=== PATIENT | male | born 1955 | race Caucasian/White ===

== ENCOUNTER 2021-03-01 12:18 | Emergency (ER) | payer OTHER ==
[2021-03-01 12:29] VITALS: BP 98/67; PULSE 60; TEMP 97.9; BMI 27.9
== END 2021-03-01 14:42 | disposition home or self-care (01) ==
LOC: JERFT 12:18
PROC: 2W3QX1Z Immobilization of Right Lower Leg using Splint (ICD-10-PCS; principal; 2021-03-01)
DX: S82.891A Other fracture of right lower leg, initial encounter for closed fracture (principal)
CPT/HCPCS: 73560-TC-RT-FY; 73610-TC-RT-FY; 73630-TC-LT; 73630-TC-RT-FY; 99284-25

== ENCOUNTER 2023-08-22 08:09 | Inpatient (IN) | payer OTHER ==
[2023-08-22] MEDS ORDERED: SODIUM CHLORIDE 0.9% 1000 ML INFUS.BAG IV ONE (08:20)
[2023-08-22] MEDS ORDERED: ETOMIDATE 20 MG/10 ML VIAL IVPUSH ONE (08:20)
[2023-08-22] MEDS ORDERED: ROCURONIUM BROMIDE 50 MG/5 ML VIAL IV ONE (08:20)
[2023-08-22] MEDS ORDERED: AMIODARONE HCL INJECTION 150 MG in DEXTROSE 5%-WATER - 100 ML IVPB ONE (08:28)
[2023-08-22] MEDS ORDERED: AMIODARONE HCL 150 MG/3 ML VIAL IVPUSH ONE (08:29)
[2023-08-22] MEDS ORDERED: AZITHROMYCIN IVPB 500 MG in DEXTROSE 5%-WATER - 250 ML IVPB ONE (08:37)
[2023-08-22] MEDS ORDERED: CEFTRIAXONE 1 GM in DEXTROSE 5%-WATER - 100 ML IVPB ONE (08:37)
[2023-08-22 08:39] LABS: INR 1.39 (0.83-1.09); PROTHROMBIN TIME (PATIENT) 16.1 SEC (9.7-13.0)
[2023-08-22] MEDS ORDERED: AMIODARONE IN DEXTROSE,ISO-OSM 360 MG/200 ML BAG ONE ×2 (08:57→13:34)
[2023-08-22 09:02] LABS: HEMATOCRIT 45.1 % (35.4-49); HEMOGLOBIN 15.2 G/dL (11.7-16.9); MCH 31.7 pg (25.7-33.7); MCHC 33.8 g/dl (32.0-35.9); MEAN CELL VOLUME 93.8 fl (80-96); MEAN PLT VOLUME 10.4 fl (7.5-11.1); PLATELET COUNT 140.2 10^3/uL (134-434); RBC 4.81 10^6/uL (4.00-5.60); RDW 14.5 % (11.9-15.9); WHITE BLOOD COUNT 9.2 10^3/uL (4.0-10.8)
[2023-08-22 09:04] LABS: ALBUMIN 4.2 g/dl (3.4-5.0); BILIRUBIN,TOTAL 0.9 mg/dl (0.2-1); CALCIUM 9.2 mg/dl (8.5-10.1); CREATININE 1.1 mg/dl (0.6-1.3); MAGNESIUM 1.9 mg/dL (1.8-2.4); POTASSIUM 4.4 mmol/L (3.5-5.1); TOT PROT 6.8 g/dl (6.4-8.2)
[2023-08-22] MEDS ORDERED: MIDAZOLAM HCL 2 MG/2 ML SINGLE DOSE VIAL IVPUSH ONE ×2 (09:15→10:10)
[2023-08-22] MEDS ORDERED: MIDAZOLAM HCL 2 MG/2 ML SINGLE DOSE VIAL ONE ×2 (09:16→10:06)
[2023-08-22] MEDS ORDERED: PROPOFOL 200 MG/20 ML VIAL IVPUSH ONE (09:21)
[2023-08-22] MEDS ORDERED: cefTRIAXone SODIUM 1 GM VIAL ONE (09:44)
[2023-08-22 09:50] LABS: ARTERIAL BLD GAS O2 SATURATION 88.1 % (95-98); ARTERIAL BLOOD GAS BASE EXCESS -3.8 mmol/L (-2-2); ARTERIAL BLOOD GAS PO2 58.7 mmHg (80-100); ARTERIAL BLOOD GAS pH 7.313 (7.350-7.450)
[2023-08-22 09:54] LABS: VENOUS BASE EXCESS -4.5 mmol/L (-2-2); VENOUS O2 SATURATION 54.2 % (70-80); VENOUS PCO2 51.9 mmHg (38-52); VENOUS PH 7.266 (7.310-7.410)
[2023-08-22 10:15] LABS: URINE SPERM PRESENT
[2023-08-22 10:18] LABS: LACTIC ACID 5.8 mmol/L (0.4-2.0)
[2023-08-22] MEDS ORDERED: FENTANYL NS IVPB 500 MCG/100 ML BAG IVPB ONE (11:27)
[2023-08-22] MEDS ORDERED: HEPARIN NA (PORCINE) 5,000 UNITS/ML 1ML VIAL IVPUSH PRN ×2 (12:16)
[2023-08-22] MEDS ORDERED: HEPARIN NA (PORCINE) 5,000 UNITS/ML 1ML VIAL IVPUSH ONE (12:16)
[2023-08-22] MEDS ORDERED: LACTATED RINGERS SOLUTION 1000 ML INFUS.BAG IV ONE ×3 (12:25→20:23)
[2023-08-22] MEDS ORDERED: NOREPINEPHRINE BITARTRATE 4 MG/4 ML ML IV ONE ×2 (12:53→13:23)
[2023-08-22] MEDS: FENTANYL NS IVPB 500 MCG/100 ML BAG IVPB SCH (13:00)
[2023-08-22] MEDS: PROPOFOL 1,000,000 MCG/100 ML VIAL IVPB SCH (17:00)
[2023-08-22 17:56] LABS: ARTERIAL BLD GAS O2 SATURATION 85.2 % (95-98); ARTERIAL BLOOD GAS BASE EXCESS -6.5 mmol/L (-2-2); ARTERIAL BLOOD GAS PO2 56.1 mmHg (80-100); ARTERIAL BLOOD GAS pH 7.273 (7.350-7.450)
[2023-08-22 17:58] LABS: ALLENS TEST POSITIVE
[2023-08-22 18:00] LABS: VENT MODE AC; VENT RATE 14
[2023-08-22] MEDS: HEPARIN INFUSION - 25,000 UNITS/500 ML INFUS.BAG IVPB SCH (19:00)
[2023-08-22] MEDS: MUPIROCIN 2% TOPICAL OINTMENT FOR DECOLONIZATION NS SCH ×2 (19:01→21:30)
[2023-08-22 19:08] LABS: LACTIC ACID 4.3 mmol/L (0.4-2.0)
[2023-08-22] MEDS: ACETAMINOPHEN 1000 MG/100 ML BAG IVPB PRN (19:23)
[2023-08-22] MEDS ORDERED: NOREPINEPHRINE 0.9 % NACL 8 MG/250 ML BAG IVPB SCH (19:30)
[2023-08-22] MEDS ORDERED: AZITHROMYCIN IVPB 500 MG/250 ML BAG IVPB ONE (19:30)
[2023-08-22] MEDS ORDERED: MIDAZOLAM HCL 5 MG/1 ML Single Dose Vial ONE (19:41)
[2023-08-22] MEDS ORDERED: AMIODARONE IN DEXTROSE,ISO-OSM 360 MG/200 ML BAG IV SCH (19:45)
[2023-08-22] MEDS: INSULIN SLIDING SCALE (NOVOLOG) 1 VIAL SQ SCH (19:52)
[2023-08-22] MEDS: PIPERACILLIN/TAZOB 3.375 GM 3.375 GM in DEXTROSE 5%-WATER - 50 ML IVPB SCH (19:57)
[2023-08-22] MEDS ORDERED: MIDAZOLAM HCL 5 MG/1 ML Single Dose Vial IVPUSH ONE (20:28)
[2023-08-22] MEDS ORDERED: VANCOMYCIN/WATER FOR INJ (PEG) 1,000 MG/200 ML BAG IVPB ONE (20:30)
[2023-08-22] MEDS: PANTOPRAZOLE SODIUM 40 MG VIAL IVPUSH SCH (21:27)
[2023-08-22] MEDS: CHLORHEXIDINE GLUCONATE 4% CLEANSER FOR DECOLONIZATION TP SCH (21:27)
[2023-08-22] MEDS ORDERED: VASOPRESSIN 20 UNITS/ML VIAL IV ONE (21:53)
[2023-08-22] MEDS: VASOPRESSIN 40 UNITS/100 ML BAG IV SCH (21:59)
[2023-08-22] MEDS: HYDROCORTISONE SOD SUCCINATE 100 MG/2 ML VIAL IVPUSH SCH (23:30)
[2023-08-22 23:52] LABS: ALBUMIN 2.6 g/dl (3.4-5.0); BILIRUBIN,TOTAL 0.7 mg/dL (0.2-1); BLOOD UREA NITROGEN 16.6 mg/dL (7-18); CALCIUM 7.7 mg/dL (8.5-10.1); CREATININE 1.4 mg/dL (0.55-1.3); MAGNESIUM 1.4 mg/dL (1.8-2.4); POTASSIUM 5.1 mmol/L (3.5-5.1)
[2023-08-23] MEDS ORDERED: MAGNESIUM SULFATE IN WATER 2 GM/50 ML IVPB IVPB ONE (00:11)
[2023-08-23] MEDS ORDERED: INSULIN (NOVOLOG) ASPART 100 UNITS/ML 10ML VIAL ONE (00:28)
[2023-08-23] MEDS: INSULIN SLIDING SCALE (NOVOLOG) 1 VIAL SQ SCH ×4 (00:30→19:29)
[2023-08-23] MEDS: PIPERACILLIN/TAZOB 3.375 GM 3.375 GM in DEXTROSE 5%-WATER - 50 ML IVPB SCH ×3 (02:01→18:46)
[2023-08-23] MEDS: HYDROCORTISONE SOD SUCCINATE 100 MG/2 ML VIAL IVPUSH SCH ×3 (05:09→21:13)
[2023-08-23 07:07] LABS: ARTERIAL BLD GAS O2 SATURATION 91.7 % (95-98); ARTERIAL BLOOD GAS BASE EXCESS -7.1 mmol/L (-2-2); ARTERIAL BLOOD GAS PO2 70.3 mmHg (80-100); ARTERIAL BLOOD GAS pH 7.261 (7.350-7.450)
[2023-08-23 07:09] LABS: VENT MODE V-AC; VENT RATE 14
[2023-08-23 08:05] LABS: INR 1.67 (0.83-1.09); PROTHROMBIN TIME (PATIENT) 19.3 SEC (9.7-13.0)
[2023-08-23 08:22] LABS: HEMATOCRIT 44.9 % (35.4-49); HEMOGLOBIN 14.8 GM/dL (11.7-16.9); MCH 31.2 pg (25.7-33.7); MCHC 32.9 g/dl (32.0-35.9); MEAN CELL VOLUME 94.7 fl (80-96); MEAN PLT VOLUME 10.3 fl (7.5-11.1); PLATELET COUNT 125 10^3/uL (134-434); RBC 4.74 M/mm3 (4.00-5.60); RDW 13.7 % (11.9-15.9); WHITE BLOOD COUNT 15.1 K/mm3 (4.0-10.0)
[2023-08-23 08:25] LABS: ACTIVATED PTT 236.1 SECONDS (25.2-36.5)
[2023-08-23] MEDS ORDERED: LACTATED RINGERS SOLUTION 1,000 ML/1,000 ML INFUS.BAG IV STA ×2 (08:38)
[2023-08-23 08:39] LABS: ALBUMIN 2.8 g/dl (3.4-5.0); BILIRUBIN,TOTAL 0.9 mg/dL (0.2-1); BLOOD UREA NITROGEN 17.3 mg/dL (7-18); CALCIUM 7.8 mg/dL (8.5-10.1); CREATININE 1.2 mg/dL (0.55-1.3); PHOSPHOROUS 3.6 mg/dL (2.5-4.9); POTASSIUM 5.6 mmol/L (3.5-5.1); TOT PROT 5.5 g/dl (6.4-8.2)
[2023-08-23] MEDS ORDERED: DOCUSATE NA 100 MG/10 ML UNIT-DOSE CUPS GT PRN (08:48)
[2023-08-23] MEDS: PANTOPRAZOLE SODIUM 40 MG VIAL IVPUSH SCH (09:06)
[2023-08-23] MEDS: MUPIROCIN 2% TOPICAL OINTMENT FOR DECOLONIZATION NS SCH ×2 (09:07→21:12)
[2023-08-23 09:29] LABS: ANISOCYTOSIS 1+; MACROCYTOSIS 0; OVALOCYTE 1+
[2023-08-23] MEDS: ACETAMINOPHEN 1000 MG/100 ML BAG IVPB PRN (09:41)
[2023-08-23] MEDS: HEPARIN INFUSION - 25,000 UNITS/500 ML INFUS.BAG IVPB SCH (13:19)
[2023-08-23] MEDS: NOREPINEPHRINE 0.9 % NACL 8 MG/250 ML BAG IVPB SCH (13:22)
[2023-08-23] MEDS: PROPOFOL 1,000,000 MCG/100 ML VIAL IVPB SCH (13:54)
[2023-08-23] MEDS: FENTANYL NS IVPB 500 MCG/100 ML BAG IVPB SCH ×2 (15:22→21:12)
[2023-08-23] MEDS: VANCOMYCIN/WATER 1250 MG 1,250 MG/250 ML BAG IVPB SCH (15:54)
[2023-08-23 19:00] LABS: INR 2.32 (0.83-1.09); PROTHROMBIN TIME (PATIENT) 26.7 SEC (9.7-13.0)
[2023-08-23 19:03] LABS: ACTIVATED PTT 107.7 SECONDS (25.2-36.5)
[2023-08-23] MEDS: SENNOSIDES 8.8 MG/5 ML SYRUP NGT SCH (21:13)
[2023-08-23] MEDS: CHLORHEXIDINE GLUCONATE 4% CLEANSER FOR DECOLONIZATION TP SCH (21:13)
[2023-08-23 22:51] LABS: ARTERIAL BLD GAS O2 SATURATION 59.1 % (95-98); ARTERIAL BLOOD GAS BASE EXCESS -4.2 mmol/L (-2-2)
[2023-08-23 23:03] LABS: ARTERIAL BLOOD GAS PO2 33.7 mmHg (80-100)
[2023-08-23 23:56] LABS: LACTIC ACID 2.7 mmol/L (0.4-2.0)
[2023-08-24] MEDS: INSULIN SLIDING SCALE (NOVOLOG) 1 VIAL SQ SCH ×4 (00:44→18:46)
[2023-08-24] MEDS: PIPERACILLIN/TAZOB 3.375 GM 3.375 GM in DEXTROSE 5%-WATER - 50 ML IVPB SCH ×3 (01:06→17:23)
[2023-08-24] MEDS: VANCOMYCIN/WATER 1250 MG 1,250 MG/250 ML BAG IVPB SCH ×2 (03:08→14:39)
[2023-08-24] MEDS: HYDROCORTISONE SOD SUCCINATE 100 MG/2 ML VIAL IVPUSH SCH ×3 (05:46→21:41)
[2023-08-24 08:05] LABS: ARTERIAL BLD GAS O2 SATURATION 98.3 % (95-98); ARTERIAL BLOOD GAS BASE EXCESS -1.5 mmol/L (-2-2); ARTERIAL BLOOD GAS PO2 128.4 mmHg (80-100); ARTERIAL BLOOD GAS pH 7.331 (7.350-7.450)
[2023-08-24 08:15] LABS: HEMATOCRIT 33.5 % (35.4-49); HEMOGLOBIN 11.3 GM/dL (11.7-16.9); MCH 31.5 pg (25.7-33.7); MCHC 33.6 g/dl (32.0-35.9); MEAN CELL VOLUME 93.6 fl (80-96); MEAN PLT VOLUME 10.5 fl (7.5-11.1); PLATELET COUNT 75 10^3/uL (134-434); RBC 3.58 M/mm3 (4.00-5.60); RDW 13.6 % (11.9-15.9); WHITE BLOOD COUNT 9.6 K/mm3 (4.0-10.0)
[2023-08-24 08:18] LABS: LACTIC ACID 2.4 mmol/L (0.4-2.0)
[2023-08-24] MEDS: FENTANYL NS IVPB 500 MCG/100 ML BAG IVPB SCH ×2 (08:30→15:56)
[2023-08-24 08:35] LABS: POTASSIUM 3.9 mmol/L (3.5-5.1)
[2023-08-24 08:37] LABS: CALCIUM 7.6 mg/dL (8.5-10.1)
[2023-08-24 08:38] LABS: ALBUMIN 2.3 g/dl (3.4-5.0); BLOOD UREA NITROGEN 17.8 mg/dL (7-18); MAGNESIUM 1.8 mg/dL (1.8-2.4)
[2023-08-24 08:40] LABS: BILIRUBIN,DIRECT 0.3 mg/dL (0.0-0.2)
[2023-08-24 08:41] LABS: PHOSPHOROUS 2.6 mg/dL (2.5-4.9)
[2023-08-24 08:42] LABS: BILIRUBIN,TOTAL 0.7 mg/dL (0.2-1)
[2023-08-24 08:43] LABS: TOT PROT 4.6 g/dl (6.4-8.2)
[2023-08-24] MEDS: PROPOFOL 1,000,000 MCG/100 ML VIAL IVPB SCH ×2 (09:04→15:01)
[2023-08-24] MEDS: PANTOPRAZOLE SODIUM 40 MG VIAL IVPUSH SCH (09:06)
[2023-08-24] MEDS: NOREPINEPHRINE 0.9 % NACL 8 MG/250 ML BAG IVPB SCH ×2 (09:15→16:26)
[2023-08-24] MEDS: MUPIROCIN 2% TOPICAL OINTMENT FOR DECOLONIZATION NS SCH ×2 (09:15→21:37)
[2023-08-24] MEDS ORDERED: INSULIN (NOVOLOG) ASPART 100 UNITS/ML 10ML VIAL ONE ×3 (11:56→18:29)
[2023-08-24] MEDS: VASOPRESSIN 40 UNITS/100 ML BAG IV SCH ×2 (15:00→15:53)
[2023-08-24] MEDS ORDERED: VASOPRESSIN 20 UNITS/ML VIAL IV ONE (15:12)
[2023-08-24] MEDS: HEPARIN INFUSION - 25,000 UNITS/500 ML INFUS.BAG IVPB SCH (18:43)
[2023-08-24] MEDS: CHLORHEXIDINE GLUCONATE 4% CLEANSER FOR DECOLONIZATION TP SCH (21:37)
[2023-08-24] MEDS: SENNOSIDES 8.8 MG/5 ML SYRUP NGT SCH (21:41)
[2023-08-25] MEDS: FENTANYL NS IVPB 500 MCG/100 ML BAG IVPB SCH (00:58)
[2023-08-25] MEDS: INSULIN SLIDING SCALE (NOVOLOG) 1 VIAL SQ SCH ×4 (00:59→18:30)
[2023-08-25] MEDS: PIPERACILLIN/TAZOB 3.375 GM 3.375 GM in DEXTROSE 5%-WATER - 50 ML IVPB SCH ×3 (01:01→18:30)
[2023-08-25] MEDS: VANCOMYCIN/WATER 1250 MG 1,250 MG/250 ML BAG IVPB SCH ×2 (02:02→14:17)
[2023-08-25] MEDS: HYDROCORTISONE SOD SUCCINATE 100 MG/2 ML VIAL IVPUSH SCH ×3 (05:20→21:41)
[2023-08-25 07:17] LABS: HEMATOCRIT 29.9 % (35.4-49); HEMOGLOBIN 10.2 GM/dL (11.7-16.9); MCH 32.1 pg (25.7-33.7); MCHC 34.1 g/dl (32.0-35.9); MEAN CELL VOLUME 94.1 fl (80-96); MEAN PLT VOLUME 9.5 fl (7.5-11.1); PLATELET COUNT 68 10^3/uL (134-434); RBC 3.17 M/mm3 (4.00-5.60); RDW 13.8 % (11.9-15.9); WHITE BLOOD COUNT 7.2 K/mm3 (4.0-10.0)
[2023-08-25 07:41] LABS: BLOOD UREA NITROGEN 21.2 mg/dL (7-18); CALCIUM 7.7 mg/dL (8.5-10.1)
[2023-08-25 07:42] LABS: ALBUMIN 2.3 g/dl (3.4-5.0); MAGNESIUM 2.2 mg/dL (1.8-2.4)
[2023-08-25 07:45] LABS: CREATININE 0.9 mg/dL (0.55-1.3)
[2023-08-25 07:46] LABS: TOT PROT 4.8 g/dl (6.4-8.2)
[2023-08-25 07:50] LABS: BILIRUBIN,TOTAL 0.7 mg/dL (0.2-1)
[2023-08-25] MEDS: PANTOPRAZOLE SODIUM 40 MG VIAL IVPUSH SCH (09:07)
[2023-08-25] MEDS: MUPIROCIN 2% TOPICAL OINTMENT FOR DECOLONIZATION NS SCH ×2 (09:08→21:42)
[2023-08-25] MEDS: PROPOFOL 1,000,000 MCG/100 ML VIAL IVPB SCH ×2 (09:08)
[2023-08-25] MEDS: ENOXAPARIN NA (PORCINE) 100 MG/1 ML DISP.SYRIN SQ SCH ×2 (12:04→21:41)
[2023-08-25] MEDS: DEXTROSE 5%-0.45% SALINE 1,000 ML IV SCH (12:05)
[2023-08-25] MEDS: NOREPINEPHRINE 0.9 % NACL 8 MG/250 ML BAG IVPB SCH (13:12)
[2023-08-25] MEDS ORDERED: INSULIN (NOVOLOG) ASPART 100 UNITS/ML 10ML VIAL ONE (14:14)
[2023-08-25] MEDS: SENNOSIDES 8.8 MG/5 ML SYRUP NGT SCH (21:41)
[2023-08-25] MEDS: CHLORHEXIDINE GLUCONATE 4% CLEANSER FOR DECOLONIZATION TP SCH (21:41)
[2023-08-26] MEDS: PIPERACILLIN/TAZOB 3.375 GM 3.375 GM in DEXTROSE 5%-WATER - 50 ML IVPB SCH ×2 (01:39→09:26)
[2023-08-26] MEDS: INSULIN SLIDING SCALE (NOVOLOG) 1 VIAL SQ SCH ×4 (01:44→21:17)
[2023-08-26] MEDS: DEXTROSE 5%-0.45% SALINE 1,000 ML IV SCH ×2 (04:30→17:36)
[2023-08-26] MEDS: HYDROCORTISONE SOD SUCCINATE 100 MG/2 ML VIAL IVPUSH SCH ×2 (05:23→17:37)
[2023-08-26 07:04] LABS: HEMATOCRIT 33.7 % (35.4-49); HEMOGLOBIN 11.2 GM/dL (11.7-16.9); MCH 31.1 pg (25.7-33.7); MCHC 33.3 g/dl (32.0-35.9); MEAN CELL VOLUME 93.6 fl (80-96); MEAN PLT VOLUME 8.9 fl (7.5-11.1); PLATELET COUNT 78 10^3/uL (134-434); RDW 13.6 % (11.9-15.9); WHITE BLOOD COUNT 11.1 K/mm3 (4.0-10.0)
[2023-08-26 07:24] LABS: POTASSIUM 3.3 mmol/L (3.5-5.1)
[2023-08-26 07:28] LABS: CALCIUM 7.8 mg/dL (8.5-10.1)
[2023-08-26 07:29] LABS: ALBUMIN 2.4 g/dl (3.4-5.0); BLOOD UREA NITROGEN 19.2 mg/dL (7-18); MAGNESIUM 2.1 mg/dL (1.8-2.4)
[2023-08-26 07:32] LABS: CREATININE 0.8 mg/dL (0.55-1.3); PHOSPHOROUS 1.3 mg/dL (2.5-4.9)
[2023-08-26 07:33] LABS: BILIRUBIN,TOTAL 1.2 mg/dL (0.2-1); TOT PROT 5.4 g/dl (6.4-8.2)
[2023-08-26] MEDS ORDERED: NAPH,MB-DB/K PH,MBDB POWDER PACKET PO ONE (07:45)
[2023-08-26] MEDS: ENOXAPARIN NA (PORCINE) 100 MG/1 ML DISP.SYRIN SQ SCH ×2 (09:25→21:18)
[2023-08-26] MEDS: PANTOPRAZOLE SODIUM 40 MG VIAL IVPUSH SCH (09:26)
[2023-08-26] MEDS: MUPIROCIN 2% TOPICAL OINTMENT FOR DECOLONIZATION NS SCH ×2 (09:26→21:18)
[2023-08-26 15:02] VITALS: BMI 29.7
[2023-08-26] MEDS ORDERED: LABETALOL HCL 20 MG/4 ML VIAL ONE ×2 (17:33→22:30)
[2023-08-26] MEDS: CEFAZOLIN 1 GM in DEXTROSE 5%-WATER - 50 ML IVPB SCH (17:36)
[2023-08-26] MEDS: LABETALOL HCL 5 MG/1 ML (100MG/20 ML VIAL) IVPUSH PRN ×2 (18:22→22:31)
[2023-08-26] MEDS ORDERED: INSULIN (NOVOLOG) ASPART 100 UNITS/ML 10ML VIAL ONE (21:17)
[2023-08-26] MEDS: SENNOSIDES 8.8 MG/5 ML SYRUP NGT SCH (21:18)
[2023-08-26] MEDS: CHLORHEXIDINE GLUCONATE 4% CLEANSER FOR DECOLONIZATION TP SCH (21:18)
[2023-08-26] MEDS ORDERED: NOREPINEPHRINE BITARTRATE 4 MG/4 ML ML IV ONE (21:58)
[2023-08-26] MEDS ORDERED: VASOPRESSIN 20 UNITS/ML VIAL IV ONE (21:59)
[2023-08-27] MEDS: HYDROCORTISONE SOD SUCCINATE 100 MG/2 ML VIAL IVPUSH SCH ×2 (01:18→09:30)
[2023-08-27] MEDS: CEFAZOLIN 1 GM in DEXTROSE 5%-WATER - 50 ML IVPB SCH ×3 (01:18→18:03)
[2023-08-27] MEDS: INSULIN SLIDING SCALE (NOVOLOG) 1 VIAL SQ SCH ×4 (01:23→19:07)
[2023-08-27] MEDS: LABETALOL HCL 5 MG/1 ML (100MG/20 ML VIAL) IVPUSH PRN ×2 (06:11→16:23)
[2023-08-27] MEDS ORDERED: INSULIN (NOVOLOG) ASPART 100 UNITS/ML 10ML VIAL ONE ×2 (06:22→13:33)
[2023-08-27 07:36] LABS: HEMATOCRIT 34.3 % (35.4-49); HEMOGLOBIN 11.7 GM/dL (11.7-16.9); MCH 31.5 pg (25.7-33.7); MEAN CELL VOLUME 92.7 fl (80-96); MEAN PLT VOLUME 9.9 fl (7.5-11.1); PLATELET COUNT 91 10^3/uL (134-434); RDW 13.3 % (11.9-15.9); WHITE BLOOD COUNT 8.6 K/mm3 (4.0-10.0)
[2023-08-27 08:02] LABS: CHLORIDE 104 mmol/L (98-107); SODIUM 143 mmol/L (136-145)
[2023-08-27 08:04] LABS: ALBUMIN 2.4 g/dl (3.4-5.0); CALCIUM 7.6 mg/dL (8.5-10.1); CO2 30 mmol/L (21-32); GLUCOSE,RANDOM 197 mg/dL (74-106); MAGNESIUM 1.8 mg/dL (1.8-2.4)
[2023-08-27 08:05] LABS: BLOOD UREA NITROGEN 13.9 mg/dL (7-18)
[2023-08-27 08:07] LABS: CREATININE 0.6 mg/dL (0.55-1.3); PHOSPHOROUS 1.5 mg/dL (2.5-4.9)
[2023-08-27 08:08] LABS: SGOT/AST 23 U/L (15-37); SGPT/ALT 44 U/L (13-61)
[2023-08-27 08:09] LABS: BILIRUBIN,TOTAL 0.9 mg/dL (0.2-1); TOT PROT 5.3 g/dl (6.4-8.2)
[2023-08-27 08:10] LABS: ALK PHOS 72 U/L (45-117)
[2023-08-27 08:22] LABS: ANION GAP 9 mmol/L (4-13); POTASSIUM 2.7 mmol/L (3.5-5.1)
[2023-08-27] MEDS ORDERED: NAPH,MB-DB/K PH,MBDB POWDER PACKET PO ONE (08:45)
[2023-08-27] MEDS ORDERED: KCL 20 MEQ PREMIX BAG 100 ML IVPB ONE ×2 (09:00→10:00)
[2023-08-27] MEDS: ENOXAPARIN NA (PORCINE) 100 MG/1 ML DISP.SYRIN SQ SCH ×2 (09:30→22:26)
[2023-08-27] MEDS: PANTOPRAZOLE SODIUM 40 MG VIAL IVPUSH SCH (09:30)
[2023-08-27] MEDS: MUPIROCIN 2% TOPICAL OINTMENT FOR DECOLONIZATION NS SCH (09:31)
[2023-08-27] MEDS: DEXTROSE 5%-0.45% SALINE 1,000 ML IV SCH (09:32)
[2023-08-27] MEDS ORDERED: LABETALOL HCL 20 MG/4 ML VIAL ONE (16:14)
[2023-08-27 20:16] LABS: CHLORIDE 105 mmol/L (98-107); SODIUM 143 mmol/L (136-145)
[2023-08-27 20:19] LABS: CALCIUM 8.3 mg/dL (8.5-10.1)
[2023-08-27 20:20] LABS: CO2 30 mmol/L (21-32); GLUCOSE,RANDOM 155 mg/dL (74-106)
[2023-08-27 20:22] LABS: BLOOD UREA NITROGEN 12.4 mg/dL (7-18)
[2023-08-27 20:23] LABS: ANION GAP 8 mmol/L (4-13); CREATININE 0.7 mg/dL (0.55-1.3); POTASSIUM 2.7 mmol/L (3.5-5.1)
[2023-08-27] MEDS ORDERED: KCL 10 MEQ IVPB 10 MEQ/100 ML INFUS.BAG IVPB SCH (20:30)
[2023-08-27] MEDS: KCL 10 MEQ IVPB 10 MEQ/100 ML INFUS.BAG IVPB SCH ×3 (20:59→23:49)
[2023-08-27] MEDS: SENNOSIDES 8.8 MG/5 ML SYRUP NGT SCH (22:26)
[2023-08-27] MEDS: CHLORHEXIDINE GLUCONATE 4% CLEANSER FOR DECOLONIZATION TP SCH (22:26)
[2023-08-28] MEDS: INSULIN SLIDING SCALE (NOVOLOG) 1 VIAL SQ SCH ×4 (01:00→18:27)
[2023-08-28] MEDS: KCL 10 MEQ IVPB 10 MEQ/100 ML INFUS.BAG IVPB SCH ×3 (01:30→04:14)
[2023-08-28] MEDS: CEFAZOLIN 1 GM in DEXTROSE 5%-WATER - 50 ML IVPB SCH ×3 (02:30→17:09)
[2023-08-28 08:25] LABS: HEMATOCRIT 38.4 % (35.4-49); HEMOGLOBIN 12.9 GM/dL (11.7-16.9); MCH 31.2 pg (25.7-33.7); MCHC 33.5 g/dl (32.0-35.9); MEAN CELL VOLUME 93.2 fl (80-96); PLATELET COUNT 97 10^3/uL (134-434); RBC 4.12 M/mm3 (4.00-5.60); RDW 13.4 % (11.9-15.9); WHITE BLOOD COUNT 6.3 K/mm3 (4.0-10.0)
[2023-08-28 08:38] LABS: POTASSIUM 3.1 mmol/L (3.5-5.1)
[2023-08-28 08:43] LABS: ALBUMIN 2.5 g/dl (3.4-5.0)
[2023-08-28 08:44] LABS: BLOOD UREA NITROGEN 12.4 mg/dL (7-18); MAGNESIUM 1.9 mg/dL (1.8-2.4)
[2023-08-28 08:46] LABS: CREATININE 0.6 mg/dL (0.55-1.3)
[2023-08-28 08:47] LABS: PHOSPHOROUS 1.6 mg/dL (2.5-4.9)
[2023-08-28 08:48] LABS: BILIRUBIN,TOTAL 1.2 mg/dL (0.2-1); TOT PROT 5.7 g/dl (6.4-8.2)
[2023-08-28] MEDS ORDERED: POTASSIUM CHLORIDE ORAL LIQUID 20 MEQ/15 ML PO ONE (09:11)
[2023-08-28] MEDS: PANTOPRAZOLE SODIUM 40 MG VIAL IVPUSH SCH (09:56)
[2023-08-28] MEDS: ENOXAPARIN NA (PORCINE) 100 MG/1 ML DISP.SYRIN SQ SCH ×2 (09:56→21:34)
[2023-08-28] MEDS: metoPROLOL SUCCINATE 25 MG TAB.SR.24H (FP) PO SCH (15:08)
[2023-08-28] MEDS ORDERED: POTASSIUM PHOSPHATE 30 MM in SODIUM CHLORIDE 250 ML IVPB ONE (16:30)
[2023-08-28] MEDS ORDERED: BACITRACIN ZINC 15 GM TUBE TOPICAL OINTMENT TP ONE (17:28)
[2023-08-28] MEDS: CHLORHEXIDINE GLUCONATE 4% CLEANSER FOR DECOLONIZATION TP SCH (21:34)
[2023-08-28] MEDS: SENNOSIDES 8.8 MG/5 ML SYRUP NGT SCH (21:34)
[2023-08-29] MEDS: CEFAZOLIN 1 GM in DEXTROSE 5%-WATER - 50 ML IVPB SCH ×3 (02:37→17:12)
[2023-08-29 06:35] LABS: BASO % 0.8 % (0-2.0); EOS % 3.5 % (0-4.5); HEMATOCRIT 40.2 % (35.4-49); HEMOGLOBIN 13.6 GM/dL (11.7-16.9); LYMPH % 16.4 % (8-40); MCH 31.6 pg (25.7-33.7); MCHC 33.9 g/dl (32.0-35.9); MEAN CELL VOLUME 93.3 fl (80-96); MEAN PLT VOLUME 9.5 fl (7.5-11.1); MONO % 11.5 % (3.8-10.2); NEUT % 67.8 % (42.8-82.8); PLATELET COUNT 97 10^3/uL (134-434); RBC 4.31 M/mm3 (4.00-5.60); RDW 13.6 % (11.9-15.9); WHITE BLOOD COUNT 6.3 K/mm3 (4.0-10.0)
[2023-08-29] MEDS: INSULIN SLIDING SCALE (NOVOLOG) 1 VIAL SQ SCH ×4 (06:39→17:12)
[2023-08-29 06:53] LABS: CHLORIDE 108 mmol/L (98-107); POTASSIUM 3.2 mmol/L (3.5-5.1); SODIUM 140 mmol/L (136-145)
[2023-08-29 06:56] LABS: ALBUMIN 2.5 g/dl (3.4-5.0); ANION GAP 6 mmol/L (4-13); BLOOD UREA NITROGEN 16.3 mg/dL (7-18); CALCIUM 7.9 mg/dL (8.5-10.1); CO2 26 mmol/L (21-32); MAGNESIUM 1.9 mg/dL (1.8-2.4)
[2023-08-29 06:58] LABS: GLUCOSE,RANDOM 153 mg/dL (74-106)
[2023-08-29 06:59] LABS: CREATININE 0.6 mg/dL (0.55-1.3); PHOSPHOROUS 2.6 mg/dL (2.5-4.9); SGPT/ALT 32 U/L (13-61)
[2023-08-29 07:01] LABS: BILIRUBIN,TOTAL 1.3 mg/dL (0.2-1); SGOT/AST 16 U/L (15-37); TOT PROT 5.6 g/dl (6.4-8.2)
[2023-08-29 07:03] LABS: ALK PHOS 68 U/L (45-117)
[2023-08-29] MEDS ORDERED: POTASSIUM CHLORIDE TABS 20 MEQ TABLET.ER (FP) PO ONE (08:48)
[2023-08-29] MEDS: ENOXAPARIN NA (PORCINE) 100 MG/1 ML DISP.SYRIN SQ SCH ×2 (10:14→22:09)
[2023-08-29] MEDS: PANTOPRAZOLE SODIUM 40 MG VIAL IVPUSH SCH (10:14)
[2023-08-29] MEDS: KCL 10 MEQ IVPB 10 MEQ/100 ML INFUS.BAG IVPB SCH ×3 (10:15→14:58)
[2023-08-29] MEDS: VALSARTAN 80 MG TABLET PO SCH (10:15)
[2023-08-29] MEDS: metoPROLOL SUCCINATE 25 MG TAB.SR.24H (FP) PO SCH (10:15)
[2023-08-29 12:55] LABS: INR 1.38 (0.83-1.09)
[2023-08-29] MEDS: CHLORHEXIDINE GLUCONATE 4% CLEANSER FOR DECOLONIZATION TP SCH (22:09)
[2023-08-29] MEDS: SENNOSIDES 8.8 MG/5 ML SYRUP NGT SCH (22:11)
[2023-08-30] MEDS: CEFAZOLIN 1 GM in DEXTROSE 5%-WATER - 50 ML IVPB SCH ×3 (01:59→17:07)
[2023-08-30] MEDS: INSULIN SLIDING SCALE (NOVOLOG) 1 VIAL SQ SCH ×3 (06:01→16:51)
[2023-08-30 07:55] LABS: HEMATOCRIT 39.1 % (35.4-49); HEMOGLOBIN 13.2 GM/dL (11.7-16.9); MCH 31.1 pg (25.7-33.7); MCHC 33.8 g/dl (32.0-35.9); MEAN PLT VOLUME 9.5 fl (7.5-11.1); PLATELET COUNT 121 10^3/uL (134-434); RBC 4.25 M/mm3 (4.00-5.60); RDW 13.6 % (11.9-15.9); WHITE BLOOD COUNT 6.5 K/mm3 (4.0-10.0)
[2023-08-30 08:12] LABS: POTASSIUM 3.4 mmol/L (3.5-5.1)
[2023-08-30 08:19] LABS: BLOOD UREA NITROGEN 15.5 mg/dL (7-18); CALCIUM 7.9 mg/dL (8.5-10.1)
[2023-08-30 08:22] LABS: CREATININE 0.6 mg/dL (0.55-1.3); PHOSPHOROUS 2.6 mg/dL (2.5-4.9)
[2023-08-30] MEDS: metoPROLOL SUCCINATE 25 MG TAB.SR.24H (FP) PO SCH (10:26)
[2023-08-30] MEDS: VALSARTAN 80 MG TABLET PO SCH (10:26)
[2023-08-30] MEDS: ENOXAPARIN NA (PORCINE) 100 MG/1 ML DISP.SYRIN SQ SCH ×2 (10:26→21:22)
[2023-08-30] MEDS: PANTOPRAZOLE SODIUM 40 MG VIAL IVPUSH SCH (10:27)
[2023-08-30] MEDS ORDERED: POTASSIUM CHLORIDE ORAL LIQUID 20 MEQ/15 ML PO ONE (16:54)
[2023-08-30] MEDS: CHLORHEXIDINE GLUCONATE 4% CLEANSER FOR DECOLONIZATION TP SCH (21:21)
[2023-08-30] MEDS: SENNOSIDES 8.8 MG/5 ML SYRUP NGT SCH (21:22)
[2023-08-31] MEDS: CEFAZOLIN 1 GM in DEXTROSE 5%-WATER - 50 ML IVPB SCH ×2 (01:30→10:13)
[2023-08-31] MEDS: INSULIN SLIDING SCALE (NOVOLOG) 1 VIAL SQ SCH ×2 (06:30→11:58)
[2023-08-31 08:21] LABS: BASO % 0.7 % (0-2.0); EOS % 3.9 % (0-4.5); HEMATOCRIT 38.4 % (35.4-49); LYMPH % 14.5 % (8-40); MCH 31.6 pg (25.7-33.7); MCHC 33.8 g/dl (32.0-35.9); MEAN CELL VOLUME 93.2 fl (80-96); MEAN PLT VOLUME 9.6 fl (7.5-11.1); MONO % 12.1 % (3.8-10.2); NEUT % 68.8 % (42.8-82.8); PLATELET COUNT 152 10^3/uL (134-434); RBC 4.12 M/mm3 (4.00-5.60); RDW 13.4 % (11.9-15.9); WHITE BLOOD COUNT 6.7 K/mm3 (4.0-10.0)
[2023-08-31 08:38] LABS: POTASSIUM 4.2 mmol/L (3.5-5.1)
[2023-08-31 08:46] LABS: BLOOD UREA NITROGEN 15.1 mg/dL (7-18)
[2023-08-31 08:47] LABS: CALCIUM 7.9 mg/dL (8.5-10.1)
[2023-08-31 08:49] LABS: PHOSPHOROUS 2.7 mg/dL (2.5-4.9)
[2023-08-31 08:50] LABS: CREATININE 0.7 mg/dL (0.55-1.3)
[2023-08-31] MEDS: ENOXAPARIN NA (PORCINE) 100 MG/1 ML DISP.SYRIN SQ SCH (10:13)
[2023-08-31] MEDS: PANTOPRAZOLE SODIUM 40 MG VIAL IVPUSH SCH (10:14)
[2023-08-31] MEDS: VALSARTAN 80 MG TABLET PO SCH (10:14)
[2023-08-31] MEDS: metoPROLOL SUCCINATE 25 MG TAB.SR.24H (FP) PO SCH (10:14)
[2023-08-31 16:49] VITALS: BP 130/70; PULSE 76; RESP 17; TEMP 98.5
[2023-08-31] MEDS ORDERED: DOXYCYCLINE HYCLATE 100 MG CAPSULE PO SCH (18:00)
[2023-08-31] MEDS ORDERED: ATORVASTATIN CA 40 MG TABLET (FP) PO SCH (22:00)
== END 2023-08-31 16:40 | disposition short-term general hospital (02) | DRG 871 ==
LOC: FER 08:09 → JERBED 11:08 → JICU 11:12 → J2W 08-28 14:49
PROVIDERS: ADMIT Internal Medicine Pulmonary Disease; ATTEND Internal Medicine
PROC: 0BH17EZ Insertion of Endotracheal Airway into Trachea, Via Natural or Artificial Opening (ICD-10-PCS; principal; 2023-08-22)
PROC: 5A1945Z Respiratory Ventilation, 24-96 Consecutive Hours (ICD-10-PCS; 2023-08-22)
PROC: 05HN33Z Insertion of Infusion Device into Left Internal Jugular Vein, Percutaneous Approach (ICD-10-PCS; 2023-08-22)
PROC: B544ZZA Ultrasonography of Left Jugular Veins, Guidance (ICD-10-PCS; 2023-08-22)
PROC: 4A133B1 Monitoring of Arterial Pressure, Peripheral, Percutaneous Approach (ICD-10-PCS; 2023-08-22)
PROC: 4A133J1 Monitoring of Arterial Pulse, Peripheral, Percutaneous Approach (ICD-10-PCS; 2023-08-22)
DX: A41.01 Sepsis due to Methicillin susceptible Staphylococcus aureus (principal); I21.4 Non-ST elevation (NSTEMI) myocardial infarction; I46.9 Cardiac arrest, cause unspecified; R65.21 Severe sepsis with septic shock; I49.01 Ventricular fibrillation; J69.0 Pneumonitis due to inhalation of food and vomit; E87.20 Acidosis, unspecified; G62.81 Critical illness polyneuropathy; N17.9 Acute kidney failure, unspecified; I10 Essential (primary) hypertension; E78.5 Hyperlipidemia, unspecified; E11.9 Type 2 diabetes mellitus without complications; I25.5 Ischemic cardiomyopathy; I48.91 Unspecified atrial fibrillation; E87.6 Hypokalemia; E83.39 Other disorders of phosphorus metabolism; S09.90XA Unspecified injury of head, initial encounter; S01.21XA Laceration without foreign body of nose, initial encounter; S02.2XXA Fracture of nasal bones, initial encounter for closed fracture; I27.20 Pulmonary hypertension, unspecified; R68.0 Hypothermia, not associated with low environmental temperature; Z86.718 Personal history of other venous thrombosis and embolism; W18.39XA Other fall on same level, initial encounter; Y92.230 Patient room in hospital as the place of occurrence of the external cause; Y99.9 Unspecified external cause status
CPT/HCPCS: 0241U-QW; 36415; 36600; 70450-TC; 70486-TC; 71045-TC-FY; 71260-TC; 72125-TC; 80048; 80053; 80061; 80076; 81003; 81015; 82010; 82550; 82803; 82962; 83605; 83735; 83880; 84100; 84132; 84484; 85025; 85027; 85384; 85610; 85651; 85730; 86022; 86431; 86850; 86900; 86901; 87040; 87070; 87081; 87086; 87186; 87205; 87635; 87899; 93005; 93010; 93306-TC; 94002; 97161-GP; 99291; J1250; J1644; J3490; Q9967